=== PATIENT | male | born 1975 | race Caucasian/White ===

== ENCOUNTER 2017-06-04 13:13 | Emergency (ER) | payer OTHER ==
[~2017-06-04] VITALS: Ht 182.9 cm; Wt 103.3 kg
[~2017-06-04 13:13] MED LIST: NO HOME MEDS
[2017-06-04] MEDS ORDERED: diphenhydrAMINE 25mg capsule PO STA (15:00)
[2017-06-04] MEDS ORDERED: TRAM50TA2 PO (15:20)
[2017-06-04 15:50] VITALS: BP 147/101
== END 2017-06-04 15:51 | disposition home or self-care (01) ==
LOC: ER 13:13
DX: T78.40XA Allergy, unspecified, initial encounter (principal); Z98.890 Other specified postprocedural states; Z88.0 Allergy status to penicillin; Z79.899 Other long term (current) drug therapy; X58.XXXA Exposure to other specified factors, initial encounter
CPT/HCPCS: 99283; Q0163